=== PATIENT | male | born 1955 | race Caucasian/White ===

== ENCOUNTER → 2018-08-24 | Outpatient (CLI) | payer OTHER ==
[2018-08-24 09:06] LABS: MICROSCOPIC INDICATED
[2018-08-24 09:09] LABS: ALANINE AMINOTRANSFERASE 19 U/L (12-78); ALBUMIN 3.8 g/dL (3.4-5.0); CALCIUM 9.3 mg/dL (8.5-10.1); CHLORIDE 114 mmol/L (98-107)
[2018-08-24 09:12] LABS: ALKALINE PHOSPHATASE 85 U/L (45-117); BILIRUBIN,TOTAL 0.5 mg/dL (0.2-1.0); CREATININE 1.54 mg/dL (0.7-1.3); TOTAL PROTEIN 7.3 g/dL (6.4-8.2)
[2018-08-24 09:19] LABS: ANION GAP 4 mmol/L (5-15)
== END | disposition home or self-care (01) ==
LOC: CVU 08:29
PROVIDERS: ATTEND Orthopaedic Surgery
DX: I08.2 Rheumatic disorders of both aortic and tricuspid valves (principal); I12.9 Hypertensive chronic kidney disease with stage 1 through stage 4 chronic kidney disease, or unspecified chronic kidney disease; N18.9 Chronic kidney disease, unspecified; I25.10 Atherosclerotic heart disease of native coronary artery without angina pectoris; I25.9 Chronic ischemic heart disease, unspecified; E78.5 Hyperlipidemia, unspecified; F17.200 Nicotine dependence, unspecified, uncomplicated
CPT/HCPCS: 36415; 80053; 81001; 82043; 93306

== ENCOUNTER 2018-09-21 10:39 | Outpatient (CLI) | payer OTHER | END 2018-09-21 23:59 | disposition home or self-care (01) | LOC: STAR 10:39 | PROVIDERS: ATTEND Orthopaedic Surgery | DX: R00.0 Tachycardia, unspecified (principal) | CPT/HCPCS: 93005 ==